=== PATIENT | female | born 1995 | race American Indian/Alaskan Native ===

== ENCOUNTER 2022-03-11 18:15 | Emergency (ER) | payer MEDICAID ==
[2022-03-11 18:26] VITALS: BP 126/77
--- NOTE | 2022-03-11 22:12 | Emergency Department Report ---
Minor Respiratory - HPI Chief Complaint: Upper Respiratory Infection Stated Complaint: COUGH/NOSE BLOOD Time Seen by Provider: 03/11/22 20:58 Minor Respiratory: Yes Rhinorrhea, Yes Sore Throat, Yes Ear Pain, Yes Cough ED Review of Systems ROS: Stated complaint: COUGH/NOSE BLOOD Other details as noted in HPI Constitutional: see HPI, fever ENT: ear pain, throat pain Respiratory: cough Cardiovascular: as per HPI Endocrine: see HPI Gastrointestinal: as per HPI, nausea. denies: vomiting, diarrhea, constipation Musculoskeletal: as per HPI Skin: as per HPI Neurological: as per HPI Psychiatric: as per HPI Hematological/Lymphatic: as per HPI ED Past Medical Hx - Past Medical History Previous Medical History?: No - Surgical History Past Surgical History?: No - Medications Home Medications: Home Medications Medication Instructions Recorded Confirmed Last Taken Type Amoxicillin/K Clav Tab [Augmentin 1 tab PO Q12HR #14 tab 03/11/22 Unknown Rx 875 mg] Ondansetron (Nf) [Zofran TAB] 8 mg PO Q8HR PRN #10 tablet 03/11/22 Unknown Rx Minor Respiratory Exam - Exam General: Vital signs noted. No distress. Alert and acting appropriately. HEENT: Yes Pharyngeal Erythema, Yes Moist Mucous Membranes, No Pharyngeal Exudates, No Rhinorrhea, No Conjuctival Injection, No Frontal Tenderness, No Maxillary Tenderness Ear: Both TM Erythema, Both EAC Pain, Neither EAC Discharge Neck: No Adenopathy, No Supple Lungs: Yes Good Air Exchange, Yes Cough, No Wheezes, No Ronchi, No Stridor, No Labored Respirations, No Retractions, No Use of Accessory Muscles, No Other Abnormal Lung Sounds Heart: Yes Regular Abdomen: No Tenderness, No Peritoneal Signs, No Normal Bowel Sounds Skin: No Rash, No Edema Neurologic: Alert and oriented, no deficits. Musculoskeletal: Unremarkable. ED Course Vital Signs 03/11/22 18:23 Temperature 98.5 F Pulse Rate 73 Respiratory 18 Rate Blood Pressure 126/77 [Left] O2 Sat by Pulse 99 Oximetry Critical care attestation.: If time is entered above; I have spent that time in minutes in the direct care of this critically ill patient, excluding procedure time. ED Disposition Clinical Impression: URI (upper respiratory infection) Disposition: HOME / SELF CARE / HOMELESS Is pt being admited?: No Does the pt Need Aspirin: No Condition: Stable Instructions: Upper Respiratory Infection, Adult Prescriptions: Amoxicillin/K Clav Tab [Augmentin 875 mg] 1 tab PO Q12HR #14 tab Ondansetron (Nf) [Zofran TAB] 8 mg PO Q8HR PRN #10 tablet PRN Reason: Nausea And Vomiting Referrals: CHRIS LOUIS MD [Staff Physician] - 3-5 Days
== END 2022-03-11 22:26 | disposition home or self-care (01) ==
LOC: ED 18:15
DX: J06.9 Acute upper respiratory infection, unspecified (principal)
CPT/HCPCS: 99282